=== PATIENT | female | born 1965 | race Caucasian/White ===

== ENCOUNTER 2021-02-15 23:18 | Emergency (ER) | payer BC ==
[2021-02-15] MEDS ORDERED: Sodium Chloride 0.9% 10 ML Syringe FLUSH PRN (23:57)
--- NOTE | 2021-02-15 23:57 | EDM.PDOC ---
ED HPI GENERAL MEDICAL PROBLEM - General Chief Complaint: Respiratory Problem Stated Complaint: COUGH/SOB Time Seen by Provider: 02/15/21 23:54 Source of Information: Reports: Patient History Limitations: Reports: No Limitations - History of Present Illness INITIAL COMMENTS - FREE TEXT/NARRATIVE: 56-year-old female presents to the ED with paroxysmal productive cough to the point of emesis. Low-grade fever. Headache. She has oxygen at home and she has been using it at 2 L/min at all times for the last week. Also oximeter earlier this evening at home was as low as 84%. It was 88% of the time she presented to the ED. She feels she is gradually getting worse. Appetite remains fair. No diarrhea. She has a constant feeling of suffocation. She does not have a primary care physician. She does not have a home nebulizer and does not want one at this time I think due to financial constraints. She has not had any COVID-19 testing. She has known COPD and continues to smoke a pack of cigarettes daily much less this last week since she has been ill. Sputum is dark green in color. She has vomited 4-5 times this week from coughing so hard. She reports she was seen in the walk-in clinic a few days ago for rapid Covid 19 test and it proved to be negative. Apparently testing was also sent to public health and she has not yet heard the results. She has perhaps a low- grade fever. Nothing high. Headache is worsened by coughing. Onset: Gradual Onset Date: 02/09/21 (She has had gradually worsening upper respiratory tract infection with COPD exacerbation with productive cough for the last week.) Duration: Day(s):, Getting Worse Location: Reports: Chest (Increased chest congestion and productive cough without hemoptysis. Sputum is dark green in color.), Other (Decreased appetite. Associated headache and hypoxia) Quality: Reports: Other (Productive thick sputum with coughing.) Severity: Moderate Improves with: Reports: Rest Worsens with: Reports: Other (Worse with movement) Context: Denies: Activity, Exercise, Lifting, Sick Contact, Trauma, Other Associated Symptoms: Reports: Chest Pain, Cough, cough w sputum (Things are much), Fever/Chills, Headaches, Loss of Appetite, Malaise, Nausea/Vomiting (Posttussive vomiting for 5 times this last week), Shortness of Breath, Weakness. Denies: Confusion, Diaphoresis, Rash, Seizure, Syncope Treatments BREWER HELPER: Reports: Acetaminophen - Related Data Allergies Allergy/AdvReac Type Severity Reaction Status Date / Time No Known Allergies Allergy Verified 02/15/21 23:41 Home Meds: Home Meds Doxycycline [Vibra-Tabs] 100 mg PO Q12HR #20 tab 02/16/21 [Rx] LORazepam [Ativan] 0.5 mg PO Q8H PRN #30 tablet 02/16/21 [Rx] predniSONE [Prednisone] 20 mg PO ASDIRECTED #15 tablet 02/16/21 [Rx] predniSONE [Prednisone] 20 mg PO BID #6 tablet 02/16/21 [Rx] Past Medical History Cardiovascular History: Reports: Hypertension Respiratory History: Reports: COPD, Sleep Apnea (Not use CPAP.) Gastrointestinal History: Reports: GERD - Past Surgical History GI Surgical History: Reports: Appendectomy, Cholecystectomy, Other (See Below) (Mary fundoplication for hiatal hernia) Social & Family History - Tobacco Use Tobacco Use Status *Q: Current Every Day Tobacco User Tobacco Use Within Last Twelve Months: Cigarettes Years of Tobacco use: 41 ED ROS GENERAL - Review of Systems Review Of Systems: See Below Constitutional: Reports: Fever, Malaise, Weakness, Fatigue, Decreased Appetite HEENT: Reports: Glasses Respiratory: Reports: Shortness of Breath, Wheezing, Cough, Sputum. Denies: Pleuritic Chest Pain, Hemoptysis, Other Cardiovascular: Reports: Blood Pressure Problem (Green sputum), Dyspnea on Exertion. Denies: Claudication, Edema, Lightheadedness, Orthopnea Endocrine: Reports: Fatigue (Chronically) GI/Abdominal: Reports: Decreased Appetite. Denies: Abdominal Pain, Anorexia, Black Stool, Difficulty Swallowing, Distension, Flatus, Hematemesis, Hematochezia, Melena, Vomiting, Other : Reports: Frequency, Incontinence (Occasional stress incontinence from coughing so hard) Musculoskeletal: Reports: Neck Pain, Back Pain, Joint Pain Skin: Reports: No Symptoms (Pain shoulders and knees) Neurological: Reports: Headache, Difficulty Walking, Weakness. Denies: Confusion, Dizziness, Numbness, Paresthesia, Syncope, Tingling, Tremors (Due to dyspnea), Trouble Speaking Psychiatric: Reports: Anxiety Hematologic/Lymphatic: Reports: No Symptoms Immunologic: Reports: No Symptoms ED EXAM, GENERAL - Physical Exam Exam: See Below Exam Limited By: No Limitations General Appearance: Alert, WD/WN, Moderate Distress (Severe paroxysmal cough to the point of near emesis.), Other (Temperature is 35.9 degrees with a heart rate of 110 and sinus is bedside. Respiratory to 17 with O2 sats of 88% on room air. BP 166/88.) Eye Exam: Bilateral Eye: Normal Inspection (No blepharal pallor or scleral icterus), PERRL Throat/Mouth: Normal Inspection, Normal Lips, Normal Oropharynx Head: Atraumatic, Normocephalic Neck: Limited Range of Motion. No: Carotid Bruit, Lymphadenopathy (L) (Mild crepitus on lateral rotation), Lymphadenopathy (R) Respiratory/Chest: No Accessory Muscle Use, Decreased Breath Sounds, Rhonchi (Diffuse wheezing throughout all lobes. Rhonchi both upper anterior lobes), Wheezing. No: Lungs Clear, Normal Breath Sounds (Breath sounds are diminished to the lower bases by 25%.), Crackles, Rales Cardiovascular: No Edema (Sinus tachycardia at rest.), No Gallop, No Murmur, No Rub, Tachycardia Peripheral Pulses: 1+: Posterior Tibial (L), Posterior Tibial (R), Dorsalis Pedis (L), Dorsalis Pedis (R), 2+: Carotid (L), Carotid (R) GI/Abdominal: Normal Bowel Sounds, Soft, Non-Tender, No Organomegaly, No Mass, Pelvis Stable, Distended (Joel distended and tympanic to percussion upper abdomen combined with some degree of aerophagia) Back Exam: Normal Inspection, Other (Range of motion not evaluated). No: CVA Tenderness (L), CVA Tenderness (R) Extremities: Normal Inspection, Normal Range of Motion, Non-Tender, No Pedal Edema Neurological: Alert, Oriented, CN II-XII Intact, Normal Cognition Psychiatric: Normal Affect, Normal Mood Skin Exam: Warm, Dry, Intact, Normal Color, No Rash #1 Interpretation EKG Date: 02/16/21 Time: 01:38 Rhythm: Other (Sinus tachycardia) Rate (Beats/Min): 101 [place]: LAD-Left [place] Deviation (-85 degrees) P-Wave: Enlarged (Left atrial hypertrophy) QRS: Other (Q waves leads 2, III and aVF . Consider old inferior wall myocardial infarction) QT: Prolonged (Mildly prolonged) EKG Interpretation Comments: Abnormal ECG Course - Vital Signs Last Recorded V/S: Last Vital Signs Temp 35.9 C L 02/15/21 23:48 Pulse 110 H 02/15/21 23:48 Resp 17 02/15/21 23:48 BP 166/88 H 02/15/21 23:48 Pulse Ox 91 L 02/16/21 02:55 - Orders/Labs/Meds Orders: Active Orders 24 hr Category Date Time Status Chest 1V Frontal [CR] Stat Exams 02/15/21 23:54 Taken Peripheral IV Insertion Adult [OM.PC] Stat Oth 02/15/21 23:57 Ordered Labs: Laboratory Tests 02/16/21 02/16/21 02/16/21 Range/Units 00:17 00:36 00:36 WBC 8.34 (3.98-10.04) K/mm3 RBC 4.32 (3.98-5.22) M/mm3 Hgb 13.8 (11.2-15.7) gm/dl Hct 42.0 (34.1-44.9) % MCV 97.2 H (79.4-94.8) fl MCH 31.9 (25.6-32.2) pg MCHC 32.9 (32.2-35.5) g/dl RDW Std Deviation 46.6 H (36.4-46.3) fL Plt Count 319 (182-369) K/mm3 MPV 10.1 (9.4-12.3) fl Neut % (Auto) 52.4 (34.0-71.1) % Lymph % (Auto) 38.4 (19.3-51.7) % Foard % (Auto) 7.7 (4.7-12.5) % Eos % (Auto) 1.2 (0.7-5.8) Baso % (Auto) 0.2 (0.1-1.2) % Neut # (Auto) 4.37 (1.56-6.13) K/mm3 Lymph # (Auto) 3.20 (1.18-3.74) K/mm3 Foard # (Auto) 0.64 H (0.24-0.36) K/mm3 Eos # (Auto) 0.10 (0.04-0.36) K/mm3 Baso # (Auto) 0.02 (0.01-0.08) K/mm3 Sodium 145 (136-145) mEq/L Potassium 3.6 (3.5-5.1) mEq/L Chloride 109 H (98-107) mEq/L Carbon Dioxide 25 (21-32) mEq/L Anion Gap 14.6 (5-15) BUN 8 (7-18) mg/dL Creatinine 0.7 (0.55-1.02) mg/dL Est Cr Clr Drug Dosing 75.65 mL/min Estimated GFR (MDRD) > 60 (>60) mL/min BUN/Creatinine Ratio 11.4 L (14-18) Glucose 120 H (70-99) mg/dL Calcium 8.6 (8.5-10.1) mg/dL Magnesium 2.3 (1.8-2.4) mg/dL Total Bilirubin 0.2 (0.2-1.0) mg/dL AST 18 (15-37) U/L ALT 28 (14-59) U/L Alkaline Phosphatase 66 (46-116) U/L Troponin I < 0.017 (0.00-0.056) ng/mL C-Reactive Protein 2.2 H* (<1.0) mg/dL NT-Pro-B Natriuret Pep (0-125) pg/mL Total Protein 7.7 (6.4-8.2) g/dl Albumin 3.6 (3.4-5.0) g/dl Globulin 4.1 gm/dL Albumin/Globulin Ratio 0.9 L (1-2) Ethyl Alcohol 0.21 (0.00) gm% SARS-CoV-2 RNA ([facility]) Negative (NEGATIVE) 02/16/21 Range/Units 00:36 WBC (3.98-10.04) K/mm3 RBC (3.98-5.22) M/mm3 Hgb (11.2-15.7) gm/dl Hct (34.1-44.9) % MCV (79.4-94.8) fl MCH (25.6-32.2) pg MCHC (32.2-35.5) g/dl RDW Std Deviation (36.4-46.3) fL Plt Count (182-369) K/mm3 MPV (9.4-12.3) fl Neut % (Auto) (34.0-71.1) % Lymph % (Auto) (19.3-51.7) % Foard % (Auto) (4.7-12.5) % Eos % (Auto) (0.7-5.8) Baso % (Auto) (0.1-1.2) % Neut # (Auto) (1.56-6.13) K/mm3 Lymph # (Auto) (1.18-3.74) K/mm3 Foard # (Auto) (0.24-0.36) K/mm3 Eos # (Auto) (0.04-0.36) K/mm3 Baso # (Auto) (0.01-0.08) K/mm3 Sodium (136-145) mEq/L Potassium (3.5-5.1) mEq/L Chloride (98-107) mEq/L Carbon Dioxide (21-32) mEq/L Anion Gap (5-15) BUN (7-18) mg/dL Creatinine (0.55-1.02) mg/dL Est Cr Clr Drug Dosing mL/min Estimated GFR (MDRD) (>60) mL/min BUN/Creatinine Ratio (14-18) Glucose (70-99) mg/dL Calcium (8.5-10.1) mg/dL Magnesium (1.8-2.4) mg/dL Total Bilirubin (0.2-1.0) mg/dL AST (15-37) U/L ALT (14-59) U/L Alkaline Phosphatase (46-116) U/L Troponin I (0.00-0.056) ng/mL C-Reactive Protein (<1.0) mg/dL NT-Pro-B Natriuret Pep 46 (0-125) pg/mL Total Protein (6.4-8.2) g/dl Albumin (3.4-5.0) g/dl Globulin gm/dL Albumin/Globulin Ratio (1-2) Ethyl Alcohol (0.00) gm% SARS-CoV-2 RNA ([facility]) (NEGATIVE) Meds: Medications Discontinued Medications Generic Name Dose Route Start Last Admin Trade Name Freq PRN Reason Stop Dose Admin Albuterol/Ipratropium 3 ml 02/16/21 00:59 02/16/21 02:55 Albuterol/Ipratropium 3.0-0.5 Mg/3 Ml Neb Soln NEB 3 ml Q4H PRN Administration Shortness Of Breath/wheezing Ceftriaxone Sodium 2 gm/ 100 mls @ 200 mls/hr 02/16/21 01:54 02/16/21 02:10 Sodium Chloride IV 02/16/21 02:23 200 mls/hr ONETIME ONE Administration Lorazepam 0.5 mg 02/16/21 01:54 02/16/21 02:10 Lorazepam 2 Mg/Ml Sdv IVPUSH 02/16/21 01:55 0.5 mg ONETIME ONE Administration Methylprednisolone Sodium Succinate 125 mg 02/16/21 00:59 02/16/21 01:17 Methylprednisolone Sodium Succinate 125 Mg/2 Ml Sdv IVPUSH 02/16/21 01:00 125 mg ONETIME ONE Administration Sodium Chloride 10 ml 02/15/21 23:57 02/16/21 00:20 Sodium Chloride 0.9% 10 Ml Syringe FLUSH 10 ml ASDIRECTED PRN Administration Keep Vein Open - Radiology Interpretation Free Text/Narrative:: 56-year-old female presents to the ED with severe paroxysmal productive cough gradually worsening over the last week. Associated intermittent fevers. Cough to the point of emesis on multiple occasions. She has a history of COPD and continues to smoke cigarettes 1 pack/day. Much less the last week due to current illness. She denies any hemoptysis. She did have a rapid COVID-19 test done to the walk-in clinic a few days ago which was reportedly negative. Apparently a send out to public health is pending. She has not had COVID-19 vaccination. She uses oxygen at home 2 L/min as needed. She has a history of sleep apnea but does not use CPAP. At present she states her O2 sats were 84% at home before coming to the ED. She has a strong sense of suffocation and good insight into this causing her to be anxious. Appetite has been much less than normal due to severe cough. Plan COVID-19 screen will be done. 1 view chest x- ray to be done. Saline lock will be started. She will be given DuoNeb tobias cardenas treatment. However this may be delayed as respiratory therapist is tied up in the ICU with an intubation. Routine labs to be done to include markers of COVID-19 illness. - Re-Assessments/Exams Free Text/Narrative Re-Assessment/Exam: 02/16/21 01:00 chest x-ray reveals cardiac silhouette and mediastinum to be within normal limits. Lung parenchyma revealed diffuse fibrosis characteristic of chronic cigarette smoking. There is no definitive pulmonary infiltrate to suggest pneumonia at this time no evidence of COVID-19 pneumonia on x-ray either.White count is 8.34 auto differential is 52% neutrophils and 38% lymphocytes. Hemoglobin is 13.8 with hematocrit of 42.0 MCV is 97.2. Platelet counts 319,000 02/16/21 01:53 Sodium is 145 with a potassium of 3.6. Chloride is 109 with a bicarb of 25. Anion gap is 14.6 BUN is 8 with a creatinine of 0.7 GFR is greater than 60. Glucose is 120 calcium is 8.6 magnesium is 2.3 liver function is normal troponin is less than 0.017 C-reactive protein is 2.2 BNP is 46 total protein 7.7 with an albumin fraction of 3.6 blood alcohol is 0.21 g%. RT has not been yet available to give her DuoNeb treatment. I am going to go ahead and give her initial dose of Solu-Medrol 125 mg IV due to severe wheezing throughout both lung lizama. Her O2 sats at rest are 92 to 94% on 2 L/min by nasal cannula. I am going to give her first dose of antibiotic Rocephin 2 g IV as well. She will also be given Ativan 0.5 mg IV for anxiety relief. 02/16/21 02:55: She has been given DuoNeb at this time and feels that has made her breathe much easier. Will be to discharge her to home on Ativan 0.5 mg every 8 hours as needed for anxiety relief. She does not wish to utilize a nebulizer machine or hand-held metered-dose inhaler at this time. I am going to start her on prednisone 20 mg twice daily for 5 days and then once daily in the morning for another 5 days. Antibiotic will be doxycycline 100 mg twice daily for the next 10 days starting tomorrow morning. I have advised that she needs to find a primary care physician here in [place]. Her medical treatment has been constrained by her finances and limited ability to work. 02/16/21 03:37: She is still waiting for her daughter to come and pick her up to give her a ride home. Departure - Departure Time of Disposition: 04:04 Disposition: Home, Self-Care 01 Condition: Fair Clinical Impression: Bronchitis, COPD exacerbation - Discharge Information *PRESCRIPTION DRUG MONITORING PROGRAM REVIEWED*: Not Applicable *COPY OF PRESCRIPTION DRUG MONITORING REPORT IN PATIENT AGUS: Not Applicable Prescriptions: LORazepam [Ativan] 0.5 mg PO Q8H PRN #30 tablet PRN Reason: Anxiety relief predniSONE [Prednisone] 20 mg PO BID #6 tablet predniSONE [Prednisone] 20 mg PO ASDIRECTED #15 tablet Doxycycline [Vibra-Tabs] 100 mg PO Q12HR #20 tab Instructions: Chronic Obstructive Pulmonary Disease Exacerbation, [id number] Referrals: PCP,None [Primary Care Provider] - Forms: ED Department Discharge, ED Return to Work/School Form Additional Instructions: Evaluation in the emergency room today in regards to acute exacerbation of chronic obstructive pulmonary disease with increased sputum production and wheezing throughout. Oxygen levels are staying satisfactory in the emergency department. Chest x-ray does not reveal any signs of pneumonia at this time and COVID-19 screen was negative. You were given the initial dose of steroids Solu- Medrol 125 mg intravenously. You will need to take prednisone pills 20 mg twice daily usually with breakfast and supper for 5 days and then once in the morning only for another 5 days to reduce the inflammation in your lungs and reduce the amount of sputum produced. Initial dose of antibiotic was given in the emergency room for bronchitis and infection in the lung tubes called Rocephin. You will need to take oral antibiotic doxycycline 100 mg twice daily for 10 days to clear up chest infection completely. These should be taken with some food in your stomach but not with vitamins or calcium tablets dairy products. May use Ativan 0.5 mg tablet up to every 8 hours as needed for relief of anxiety related to feeling short of breath. You will need to continue her oxygen at 2 L/min throughout the day until you get better. I would suggest that you need to find a local physician who can provide care for your COPD. Suggest either Dr. Joel Stevenson or Dr Clement. Good phone and make an appointment with either one at [phone] Sepsis Event Note (ED) - Focused Exam Vital Signs: Vital Signs Temp Pulse Resp BP Pulse Ox Pulse Ox 02/16/21 02:55 91 L 02/15/21 23:48 35.9 C L 110 H 17 166/88 H 88 L - My Orders Last 24 Hours: My Active Orders 02/15/21 23:54 Chest 1V Frontal [CR] Stat 02/15/21 23:57 Peripheral IV Insertion Adult [OM.PC] Stat - Assessment/Plan Last 24 Hours: My Active Orders 02/15/21 23:54 Chest 1V Frontal [CR] Stat 02/15/21 23:57 Peripheral IV Insertion Adult [OM.PC] Stat
[2021-02-16] MEDS ORDERED: Albuterol/Ipratropium 3.0-0.5 MG/3 ML Neb Soln NEB PRN (00:59)
[2021-02-16] MEDS ORDERED: methylPREDNISolone Sodium Succinate 125 MG/2 ML SDV IVPUSH ONE (00:59)
[2021-02-16] MEDS ORDERED: LORazepam 2 MG/ML SDV IVPUSH ONE (01:54)
[2021-02-16] MEDS ORDERED: cefTRIAXone 2 GM in Sodium Chloride 0.9% 100 ML IV ONE (01:54)
--- NOTE | 2021-02-16 17:25 | CR ---
Chest: Portable view of the chest is obtained. Comparison: No prior chest imaging is available. Heart size and mediastinum are within normal limits for portable technique. Deformity is noted within the left fifth rib compatible with old fracture. Old fracture is also noted within the left sixth rib. Slight degenerative change is noted within the spine. Minimal atelectasis is seen within the lateral left costophrenic angle. Lungs otherwise are clear. Impression: 1. Incidental findings as noted above. 2. Nothing acute is appreciated on portable chest x-ray. Diagnostic code #2
== END 2021-02-16 04:09 | disposition home or self-care (01) ==
LOC: JD.ED 23:18
DX: J44.1 Chronic obstructive pulmonary disease with (acute) exacerbation (principal); I10 Essential (primary) hypertension; R94.31 Abnormal electrocardiogram [ECG] [EKG]; Z72.0 Tobacco use; Z79.899 Other long term (current) drug therapy; Z20.822 Contact with and (suspected) exposure to COVID-19
CPT/HCPCS: 36415; 71045; 80053; 80307; 83735; 83880; 84484; 85025; 86140; 87635; 93005; 94640; 96365; 96375; 99284; J0696; J2060; J2930; 93010; J7620-GY; U0002

== ENCOUNTER 2024-09-01 02:08 | Emergency (ER) | payer BC, OTHER ==
[2024-09-01] MEDS: EPINEPHrine 1 MG/ML SDV IM ONE ×2 (02:28→03:11)
[2024-09-01] MEDS: Famotidine 20 MG/2 ML SDV IVPUSH ONE (02:29)
[2024-09-01] MEDS: methylPREDNISolone Sodium Succinate 125 MG/2 ML SDV IVPUSH ONE (02:29)
[2024-09-01] MEDS: diphenhydrAMINE 50 MG/ML SDV IVPUSH ONE (02:29)
[2024-09-01] MEDS ORDERED: Dexamethasone 4 MG/ML 5 ML MDV PO ONE (02:44)
== END 2024-09-01 07:33 | disposition home or self-care (01) ==
LOC: JD.ED 02:08
DX: T78.3XXA Angioneurotic edema, initial encounter (principal); I10 Essential (primary) hypertension; J44.9 Chronic obstructive pulmonary disease, unspecified; Z90.49 Acquired absence of other specified parts of digestive tract
CPT/HCPCS: 96372; 96374; 96375; 99283; J0171; J1200; J2919